=== PATIENT | female | born 1960 | race Caucasian/White ===

== ENCOUNTER 2017-11-17 14:15 | Emergency (ER) | payer MEDICAID ==
[~2017-11-17] VITALS: Ht 165.1 cm; Wt 145.1 kg
--- NOTE | 2017-11-17 14:20 | NUR ---
PT TO ER BED 02. PRESENTS W/ R HAND AND R SHOULDER PAIN. R 3RD AND 4TH FINGER LAC NOTED. PLACED ON MONITOR. VSS. AWAITING MD JEFF.
--- NOTE | 2017-11-17 14:44 | NUR ---
SARITHA OLIVA AT BEDSIDE FOR EVAL.
[2017-11-17] MEDS ORDERED: HYDROCODONE/APAP 5/325MG 1 EACH TABLET ONE (14:48)
[2017-11-17] MEDS ORDERED: ONDANSETRON 4 MG TAB.RAPDIS ONE (14:49)
[2017-11-17] MEDS ORDERED: HYDROCODONE/APAP 5/325MG 1 EACH TABLET PO ONE (15:00)
[2017-11-17] MEDS ORDERED: ONDANSETRON 4 MG TAB.RAPDIS PO ONE (15:00)
[2017-11-17] MEDS ORDERED: LIDOCAINE 1% INJ 50 ML MDV IJ ONE (16:20)
[2017-11-17] MEDS ORDERED: SILVER SULFADIAZINE CREAM 25 GM TUBE ONE (17:17)
--- NOTE | 2017-11-17 17:39 | NUR ---
LAC REPAIR DONE. PT PROVIDED W/ WOUND CARE. D/C HOME IN STABLE CONDITION.
[2017-11-17 17:40] VITALS: BP 136/74
== END 2017-11-17 17:41 | disposition home or self-care (01) ==
LOC: ER 14:18
DX: S61.212A Laceration without foreign body of right middle finger without damage to nail, initial encounter (principal); S61.214A Laceration without foreign body of right ring finger without damage to nail, initial encounter; T23.101A Burn of first degree of right hand, unspecified site, initial encounter; V49.49XA Driver injured in collision with other motor vehicles in traffic accident, initial encounter; Y93.89 Activity, other specified; Y92.410 Unspecified street and highway as the place of occurrence of the external cause; Y99.8 Other external cause status
CPT/HCPCS: 12002; 73130; 99284; A4606; A6403 ×2; J3490; Q0162; Z7610

== ENCOUNTER 2017-11-19 13:44 | Emergency (ER) | payer MEDICAID ==
[~2017-11-19] VITALS: Ht 165.1 cm; Wt 145.1 kg
[2017-11-19 14:04] VITALS: BP 143/76
--- NOTE | 2017-11-19 15:08 | NUR ---
WOUND CARE AND DRESSING, RIGHT HAND LACERATIONS. NO SIGNS OF INIFECTION NOTED.
== END 2017-11-19 15:44 | disposition home or self-care (01) ==
LOC: ER 13:46
DX: S61.212D Laceration without foreign body of right middle finger without damage to nail, subsequent encounter (principal); S61.214D Laceration without foreign body of right ring finger without damage to nail, subsequent encounter; X58.XXXD Exposure to other specified factors, subsequent encounter
CPT/HCPCS: 99283; A4606; A6402; A6403; Z7610

== ENCOUNTER 2017-12-02 21:05 | Emergency (ER) | payer MEDICAID ==
[~2017-12-02] VITALS: Ht 165.1 cm; Wt 138.3 kg
[2017-12-02 21:08] VITALS: BP 135/75
== END 2017-12-02 21:54 | disposition home or self-care (01) ==
LOC: ER 21:07
DX: S61.214D Laceration without foreign body of right ring finger without damage to nail, subsequent encounter (principal); S61.212D Laceration without foreign body of right middle finger without damage to nail, subsequent encounter; X58.XXXD Exposure to other specified factors, subsequent encounter
CPT/HCPCS: A4606; Z7502; Z7610